=== PATIENT | female | born 1980 | race Caucasian/White ===

== ENCOUNTER 2018-03-12 05:31 | Emergency (ER) | payer MEDICAID, OTHER ==
--- NOTE | 2018-03-12 06:21 | ED Physician Chart ---
ED Chief Complaint/HPI - Patient Information Date Seen:: 03/12/18 Time Seen:: 06:16 Chief Complaint:: panic attacks History of Present Illness:: 37 yr old female with panic attacks and 20 plus weeks with anxiety attack took xanax 3 times today and was wonering what she can take no leaking nausea vomiting dizziness or headache Allergies:: Allergies Allergy/AdvReac Type Severity Reaction Status Date / Time No Known Allergies Allergy Verified 03/12/18 05:53 Vitals:: Vital Signs - 8 hr 03/12/18 05:35 Temp 98.2 F HR 105 RR 20 BP 118/98 O2 Sat % 96 ED Review of Systems - Review of Systems General/Constitutional: No fever Skin: No skin lesions Head: No headache Eyes: No loss of vision ENT: No earache, No nasal drainage, No sore throat, No tinnitus Neck: No neck pain, No swelling, No thyromegaly, No stiffness, No mass noted Cardio Vascular: No chest pain, No palpitations, No PND, No orthopnea, No edema Pulmonary: No SOB, No cough, No sputum, No wheezing GI: No nausea, No vomiting, No diarrhea, No pain, No melena, No hematochezia, No constipation, No hematemesis G/U: No dysuria, No frequency, No hematuria Musculoskeletal: No bone or joint pain, No back pain, No muscle pain Endocrine: No polyuria, No polydipsia Psychiatric: No prior psych history, No depression, No anxiety, No suicidal ideation Hematopoietic: No bruising, No lymphadenopathy Allergic/Immuno: No urticaria, No angioedema Neurological: No syncope, No focal symptoms, No weakness, No paresthesia, No headache, No seizure, No dizziness, No confusion, No vertigo ED Past Medical History - Past Medical History Past Medical History: Other ([panic attacks anxiety) Family Medical History - Family Member Mother History Unknown: Yes ED Physical Exam - Physical Examination General/Constitutional: Awake, Well-developed, well-nourished, Alert, No distress, GCS 15, Non-toxic appearing, Ambulatory Head: Atraumatic Eyes: Lids, conjuctiva normal, PERRL, EOMI Skin: Nl inspection, No rash, No skin lesions, No ecchymosis, Well hydrated, No lymphadenopathy ENMT: External ears, nose nl, Nasal exam nl, Lips, teeth, gums nl Neck: Nontender, Full ROM w/o pain, No JVD, No nuchal rigidity, No bruit, No mass, No stridor Respiratory: Nl effort/Exclusion, Clear to Auscultation, No Wheeze/Rhonchi/Rales Cardio Vascular: RRR, No murmur, gallop, rubs, NL S1 S2 GI: No tenderness/rebounding/guarding, No organomegaly, No hernia, Normal BS's, Nondistended, No mass/bruits, No McBurney tenderness : No CVA tenderness Extremities: No tenderness or effusion, Full ROM, normal strength in all extremities, No edema, Normal digits & nails Neuro/Psych: Alert/oriented, DTR's symmetric, Normal sensory exam, Normal motor strength, Judgement/insight normal, Mood normal, Normal gait, No focal deficits Misc: Normal back, No paraspinal tenderness ED Assessment - Assessment General Assessment: panic state now better ED Septic Shock - . Is Septic Shock (SBP<90, OR Lactate>4 mmol\L) present?: No - <6hrs of presentation: Vital Signs: Vital Signs - 8 hr 03/12/18 05:35 Temp 98.2 F HR 105 RR 20 BP 118/98 O2 Sat % 96 ED Reassessment (Disposition) - Reassessment Reassessment:: anxiety - Patient Disposition Discharge/Transfer:: Home Condition at Disposition:: Stable
[2018-03-12 06:31] LABS: % BASOPHILS 0.6 % (0.0-2.0); % EOSINOPHILS 0.3 % (0.0-5.0); % MONOCYTES 4.8 % (2.0-10.0); % NEUTROPHILS 83.3 % (40.0-80.0); BASOPHILE ABSOLUTE 0.1 Th/cumm (0-0.2); HEMATOCRIT 33.4 % (41.0-60); HEMOGLOBIN 11.3 gm/dL (12-16); LYMPHOCYTE ABSOLUTE 1.2 Th/cmm (1.5-3.0); MEAN CELL VOLUME 82.8 fl (81-100); MEAN CORPUSCULAR HEMOGLOBIN 28.1 pg (27.0-31.0); MEAN CORPUSCULAR HGB CONC 33.9 pg (28.0-36.0); MEAN PLATELET VOLUME 7.7 fl; MONOCYTE ABSOLUTE 0.5 Th/cmm (0.3-1.0); NEUTROPHILE ABSOLUTE 9.4 Th/cmm (1.8-8.0); PLATELET COUNT 279 Th/cmm (150-400); RED BLOOD COUNT 4.03 Mil/cmm (3.80-5.10); RED CELL DISTRIBUTION WIDTH 12.7 % (11.5-20.0); WHITE BLOOD COUNT 11.2 Th/cmm (4.8-10.8)
[2018-03-12 06:43] LABS: ALB/GLOB RATIO 1.1 (1.0-1.8); ALBUMIN 3.4 gm/dL (3.7-5.3); ALKALINE PHOSPHATASE 81 U/L (34-104); ANION GAP 12.9 (7.0-16.0); BILIRUBIN,TOTAL 0.4 mg/dL (0.3-1.0); BUN - UREA NITROGEN 7 mg/dL (7-25); CALCIUM SERUM 8.7 mg/dL (8.6-10.3); CARBON DIOXIDE 22.6 mEq/L (21.0-31.0); CHLORIDE 105 mEq/L (98-107); CREATININE - SERUM 0.5 mg/dL (0.6-1.2); GFR AFRICAN-AMERICAN > 60.0 ml/min (>90); GFR NON AFRICAN-AMERICAN > 60.0 ml/min; GLUCOSE 111 mg/dL (70-105); POTASSIUM SERUM 3.5 mEq/L (3.5-5.1); SGOT 23 U/L (13-39); SGPT/ALT 40 U/L (7-52); SODIUM SERUM 137 mEq/L (136-145); TOTAL PROTEIN,SERUM 6.4 gm/dL (6.0-8.3)
[2018-03-12 07:33] LABS: URINE SOURCE CLEAN C
[2018-03-12 07:49] LABS: URINE BILIRUBIN NEGATIVE (NEGATIVE); URINE BLOOD NEGATIVE (NEGATIVE); URINE GLUCOSE (UA) NEGATIVE (NEGATIVE); URINE KETONE 15 mg/dL (NEGATIVE); URINE LEUKOCYTE ESTERASE NEGATIVE (NEGATIVE); URINE NITRATE NEGATIVE (NEGATIVE); URINE PROTEIN NEGATIVE (NEGATIVE); URINE UROBILINOGEN 0.2 E.U./dL (0.2 - 1.0)
[2018-03-12 07:55] LABS: URINE CLARITY CLEAR (CLEAR); URINE COLOR YELLOW; URINE MICROSCOPIC INDICATED? YES
[2018-03-12 07:56] LABS: URINE BACTERIA MODERATE /hpf (NONE SEEN); URINE EPITHELIAL CELLS FEW /lpf (FEW); URINE RBC NONE SEEN /hpf (0-5); URINE WBC 0-2 /hpf (0-5)
[2018-03-12 08:00] LABS: AMPHETAMINE URINE NEGATIVE (NEGATIVE); BARBITURATES URINE NEGATIVE (NEGATIVE); BENZODIAZEPINES QUAL URINE POSITIVE (NEGATIVE); CANNABINOID THC NEGATIVE (NEGATIVE); COCAINE METABOLITE QUAL URINE NEGATIVE (NEGATIVE); METHADONE URINE NEGATIVE (NEGATIVE); METHAMPHETAMINES QUAL URINE NEGATIVE (NEGATIVE); OPIATES (MORPHINE) QUAL. URINE NEGATIVE (NEGATIVE); PHENCYCLIDINE (PCP) URINE NEGATIVE (NEGATIVE); TRICYCLICS (TCA) QUAL. URINE NEGATIVE (NEGATIVE)
--- NOTE | 2018-03-12 09:18 | Diagnostic Imaging Report ---
OB ultrasound (Limited) HISTORY: Pain The exam demonstrates a single intrauterine gestation with a breech presentation motion and cardiac activity are noted (160 BPM). Amniotic fluid volume is normal (FLOR equals 11.1). Cervical length equals 4.3 cm. anatomic evaluation and measurements not performed at this time. IMPRESSION: 1. Single intrauterine gestation with a breech presentation 2. Normal amniotic fluid volume (FLOR equals 11.1). anatomic evaluation and measurements not performed at this time.
== END 2018-03-12 08:15 | disposition home or self-care (01) ==
LOC: ER 05:31
DX: O99.342 Other mental disorders complicating pregnancy, second trimester (principal); F41.0 Panic disorder [episodic paroxysmal anxiety]
CPT/HCPCS: 36415-UA; 76815-TC; 80053-TC; 80307; 81001-TC; 85025-TC; 87086-90; Z7502

== ENCOUNTER 2018-08-22 01:46 | Emergency (ER) | payer OTHER ==
--- NOTE | 2018-08-22 01:55 | ED Physician Chart ---
ED Chief Complaint/HPI - Patient Information Date Seen:: 08/22/18 Time Seen:: 01:52 Chief Complaint:: Abdominal pain History of Present Illness:: 37 yo morbid obese female developed sudden onset of epigastric abdominal pain for 5 hours prior to ER visit. The pain gradually became worse with nausea but no vomiting. Patient had chills without fever. Patient had similar abdominal pain 1 year ago which lasted for 5-6 hours and subsided spontaneously. Patient recently finished a full term with a normal vaginal delivery 2 months ago. Allergies:: Allergies Allergy/AdvReac Type Severity Reaction Status Date / Time No Known Allergies Allergy Verified 03/12/18 05:53 ED Review of Systems - Review of Systems General/Constitutional: No fever, Chills Skin: No rash Head: No headache Eyes: No pain ENT: No nasal drainage Neck: No neck pain Cardio Vascular: No chest pain Pulmonary: No SOB GI: Nausea, No vomiting G/U: No dysuria, Frequency Musculoskeletal: No bone or joint pain Neurological: No focal symptoms ED Past Medical History - Past Medical History Past Medical History: No significant medical hx, Other () Social History: Non Smoker, No Alcohol, No Drug Use Surgical History: other (Right foot surgery) Family Medical History - Family Member Mother History Unknown: Yes ED Physical Exam - Physical Examination General/Constitutional: Awake, Alert Head: Atraumatic Eyes: PERRL, EOMI Skin: No skin lesions ENMT: Nasal exam nl Neck: No nuchal rigidity Respiratory: No Wheeze/Rhonchi/Rales Cardio Vascular: RRR, No murmur, gallop, rubs, NL S1 S2 Other GI comments:: RUQ and epigastric tenderness : No CVA tenderness Extremities: normal strength in all extremities Neuro/Psych: Normal motor strength, No focal deficits ED Labs/Radiology/EKG Results - Lab Results Results: Laboratory Last Values WBC 10.4 Th/cmm (4.8-10.8) 08/22/18 02:10 RBC 4.61 Mil/cmm (3.80-5.10) 08/22/18 02:10 Hgb 12.2 gm/dL (12-16) 08/22/18 02:10 Hct 36.9 % (41.0-60) L 08/22/18 02:10 MCV 80.0 fl (81-100) L 08/22/18 02:10 MCH 26.6 pg (27.0-31.0) L 08/22/18 02:10 MCHC Differential 33.2 pg (28.0-36.0) 08/22/18 02:10 RDW 13.3 % (11.5-20.0) 08/22/18 02:10 Plt Count 242 Th/cmm (150-400) 08/22/18 02:10 MPV 8.5 fl 08/22/18 02:10 Neutrophils % 78.1 % (40.0-80.0) 08/22/18 02:10 Lymphocytes % 13.1 % (20.0-50.0) L 08/22/18 02:10 Monocytes % 2.4 % (2.0-10.0) 08/22/18 02:10 Eosinophils % 4.3 % (0.0-5.0) 08/22/18 02:10 Basophils % 2.1 % (0.0-2.0) H 08/22/18 02:10 PT 9.8 SECONDS (9.5-11.5) 08/22/18 02:10 INR 0.94 (0.5-1.4) 08/22/18 02:10 PTT (Actin FS) 27.2 SECONDS (26.0-38.0) 08/22/18 02:10 Sodium 136 mEq/L (136-145) 08/22/18 02:10 Potassium 3.9 mEq/L (3.5-5.1) 08/22/18 02:10 Chloride 104 mEq/L (98-107) 08/22/18 02:10 Carbon Dioxide 23.4 mEq/L (21.0-31.0) 08/22/18 02:10 Anion Gap 12.5 (7.0-16.0) 08/22/18 02:10 BUN 17 mg/dL (7-25) 08/22/18 02:10 Creatinine 0.9 mg/dL (0.6-1.2) 08/22/18 02:10 Est GFR ( Amer) > 60.0 ml/min (>90) 08/22/18 02:10 Est GFR (Non-Af Amer) > 60.0 ml/min 08/22/18 02:10 BUN/Creatinine Ratio 18.9 08/22/18 02:10 Glucose 104 mg/dL (70-105) 08/22/18 02:10 Calcium 9.4 mg/dL (8.6-10.3) 08/22/18 02:10 Total Bilirubin 0.4 mg/dL (0.3-1.0) 08/22/18 02:10 AST 17 U/L (13-39) 08/22/18 02:10 ALT 19 U/L (7-52) 08/22/18 02:10 Alkaline Phosphatase 44 U/L (34-104) 08/22/18 02:10 Total Protein 6.9 gm/dL (6.0-8.3) 08/22/18 02:10 Albumin 4.2 gm/dL (3.7-5.3) 08/22/18 02:10 Globulin 2.7 gm/dL 08/22/18 02:10 Albumin/Globulin Ratio 1.6 (1.0-1.8) 08/22/18 02:10 Amylase 25 U/L (29-103) L 08/22/18 02:10 Lipase 15 U/L (11-82) 08/22/18 02:10 Urine Source MIDSTREAM 08/22/18 02:00 Urine Color YELLOW 08/22/18 02:00 Urine Clarity HAZY (CLEAR) 08/22/18 02:00 Urine pH 5.5 (4.6 - 8.0) 08/22/18 02:00 Ur Specific [place] <= 1.005 (1.005-1.030) 08/22/18 02:00 Urine Protein NEGATIVE mg/dL (NEGATIVE) 08/22/18 02:00 Urine Glucose (UA) NEGATIVE mg/dL (NEGATIVE) 08/22/18 02:00 Urine Ketones NEGATIVE mg/dL (NEGATIVE) 08/22/18 02:00 Urine Blood NEGATIVE (NEGATIVE) 08/22/18 02:00 Urine Nitrate NEGATIVE (NEGATIVE) 08/22/18 02:00 Urine Bilirubin NEGATIVE (NEGATIVE) 08/22/18 02:00 Urine Urobilinogen 0.2 E.U./dL (0.2 - 1.0) 08/22/18 02:00 Ur Leukocyte Esterase SMALL (NEGATIVE) H 08/22/18 02:00 Urine RBC 0-2 /hpf (0-5) 08/22/18 02:00 Urine WBC 2-5 /hpf (0-5) 08/22/18 02:00 Ur Epithelial Cells FEW /lpf (FEW) 08/22/18 02:00 Urine Bacteria FEW /hpf (NONE SEEN) 08/22/18 02:00 POC Ur Test Negative 08/22/18 02:15 - Radiology Results Results: CT abdomen/pelvis without contrast: multiple gallstones within distended gallbladder. Query mild wall thickening. No significant surrounding fluid. Correlated for acute cholecystitis. CXR: no focal consolidation - EKG Interpretations EKG Time:: 05:01 Rate & Rhythm: 74 bpm, NSR [place]: Normal Comments:: Normal EKG ED Assessment - Assessment General Assessment: Acute cholecystitis Urinary tract infection Assessment/Comments:: CBC, CMP, PT/PTT, UA Zofran ODT po Pantoprazole 40 mg po Tylenol [address] abdomen/pelvis wo contrast EKG, CXR Zosyn IV NS 1L IV bolus Admit to med surg ED Septic Shock - . Is Septic Shock (SBP<90, OR Lactate>4 mmol\L) present?: No ED Reassessment (Disposition) - Reassessment Reassessment Condition:: Improved - Patient Disposition Discharge/Transfer:: Acute Care w/in this hosp Admitting Medical Physician:: Nestor Baron
[2018-08-22] MEDS ORDERED: Pantoprazole 40 mg EC Tab PO STA (01:57)
[2018-08-22] MEDS ORDERED: Pantoprazole 40 mg EC Tab PO ONE (02:12)
[2018-08-22 02:19] LABS: % BASOPHILS 2.1 % (0.0-2.0); % EOSINOPHILS 4.3 % (0.0-5.0); % LYMPHOCYTES 13.1 % (20.0-50.0); % MONOCYTES 2.4 % (2.0-10.0); % NEUTROPHILS 78.1 % (40.0-80.0); BASOPHILE ABSOLUTE 0.2 Th/cumm (0-0.2); EOSINOPHILE ABSOLUTE 0.4 Th/cmm (0.1-0.4); HEMATOCRIT 36.9 % (41.0-60); HEMOGLOBIN 12.2 gm/dL (12-16); LYMPHOCYTE ABSOLUTE 1.4 Th/cmm (1.5-3.0); MEAN CORPUSCULAR HEMOGLOBIN 26.6 pg (27.0-31.0); MEAN CORPUSCULAR HGB CONC 33.2 pg (28.0-36.0); MEAN PLATELET VOLUME 8.5 fl; MONOCYTE ABSOLUTE 0.2 Th/cmm (0.3-1.0); NEUTROPHILE ABSOLUTE 8.2 Th/cmm (1.8-8.0); PLATELET COUNT 242 Th/cmm (150-400); RED BLOOD COUNT 4.61 Mil/cmm (3.80-5.10); RED CELL DISTRIBUTION WIDTH 13.3 % (11.5-20.0); WHITE BLOOD COUNT 10.4 Th/cmm (4.8-10.8)
[2018-08-22 02:22] LABS: URINE SOURCE MIDSTREAM
[2018-08-22 02:25] LABS: URINE BILIRUBIN NEGATIVE (NEGATIVE); URINE BLOOD NEGATIVE (NEGATIVE); URINE GLUCOSE (UA) NEGATIVE (NEGATIVE); URINE KETONE NEGATIVE (NEGATIVE); URINE LEUKOCYTE ESTERASE SMALL (NEGATIVE); URINE NITRATE NEGATIVE (NEGATIVE); URINE PH 5.5 (4.6 - 8.0); URINE PROTEIN NEGATIVE (NEGATIVE); URINE UROBILINOGEN 0.2 E.U./dL (0.2 - 1.0)
[2018-08-22 02:30] LABS: INR 0.94 (0.5-1.4); PROTHROMBIN TIME (TEST) 9.8 SECONDS (9.5-11.5)
[2018-08-22 02:35] LABS: ALB/GLOB RATIO 1.6 (1.0-1.8); ALBUMIN 4.2 gm/dL (3.7-5.3); ALKALINE PHOSPHATASE 44 U/L (34-104); AMYLASE SERUM 25 U/L (29-103); ANION GAP 12.5 (7.0-16.0); BILIRUBIN,TOTAL 0.4 mg/dL (0.3-1.0); BUN - UREA NITROGEN 17 mg/dL (7-25); CALCIUM SERUM 9.4 mg/dL (8.6-10.3); CARBON DIOXIDE 23.4 mEq/L (21.0-31.0); CHLORIDE 104 mEq/L (98-107); CREATININE - SERUM 0.9 mg/dL (0.6-1.2); GFR AFRICAN-AMERICAN > 60.0 ml/min (>90); GFR NON AFRICAN-AMERICAN > 60.0 ml/min; GLUCOSE 104 mg/dL (70-105); LIPASE 15 U/L (11-82); POTASSIUM SERUM 3.9 mEq/L (3.5-5.1); SGOT 17 U/L (13-39); SGPT/ALT 19 U/L (7-52); SODIUM SERUM 136 mEq/L (136-145); TOTAL PROTEIN,SERUM 6.9 gm/dL (6.0-8.3)
[2018-08-22 02:38] LABS: URINE CLARITY HAZY (CLEAR); URINE COLOR YELLOW; URINE MICROSCOPIC INDICATED? YES
[2018-08-22 02:40] LABS: URINE BACTERIA FEW /hpf (NONE SEEN); URINE EPITHELIAL CELLS FEW /lpf (FEW); URINE RBC 0-2 /hpf (0-5)
[2018-08-22] MEDS ORDERED: Sodium Chloride 0.9% 1,000 ML IV ONE (05:00)
[2018-08-22] MEDS ORDERED: Piperacillin Sodium/Tazobact 3.375 gm Vial IV ONE (05:04)
--- NOTE | 2018-08-22 08:45 | Diagnostic Imaging Report ---
CHEST X-RAY: AP view INDICATION: Shortness of breath COMPARISON: None FINDINGS: There is mild increased initial lung markings. An azygos fissure is noted. There is no focal consolidation or pleural effusions The heart is normal in size. Mild scoliosis is noted with mild degenerative changes of the spine. IMPRESSION: Mild increased interstitial lung markings, nonspecific. No focal consolidation identified.
--- NOTE | 2018-08-22 10:01 | Diagnostic Imaging Report ---
CT abdomen and pelvis without intravenous contrast Indication: Epigastric pain Comparison: None, Technique: Axial images were obtained from the lung bases to the bilateral proximal femurs without IV contrast. Coronal reconstructions were made. total DLP: [id number], CTDI15.5 FINDINGS: Hypoventilatory changes of the lung bases are noted. Assessment of the solid organs is limited due to lack of IV contrast. No evidence of focal hepatic lesions. Distended gallbladder is seen with multiple gallstones. Borderline prominent spleen is noted no focal lesions. No focal pancreatic or axial images. No evidence hydronephrosis or focal renal lesions. There is a moderate stool throughout the colon. No appendicitis. No free fluid or free air. Degenerative changes of the spine are noted with mild scoliosis. Degenerative changes of the pelvis are noted. There is elevation of the left hemidiaphragm. IMPRESSION: Distended gallbladder with multiple gallstones. No significant surrounding inflammation. Recommend clinical correlation and follow-up ultrasound if there is concern for acute cholecystitis. Borderline prominent spleen.
== END 2018-08-22 11:45 | disposition short-term general hospital (02) ==
LOC: ER 01:46
DX: K81.0 Acute cholecystitis (principal); N39.0 Urinary tract infection, site not specified
CPT/HCPCS: 99285; 96365; 93005; 71045; 74176; 36415; 85025; 85610; 81001; 82150; 81025; 83690; 80053; 87081; Q0162; J2543; J7030; Z7610